=== PATIENT | female | born 1975 | race African-American/Black ===

== ENCOUNTER 2017-11-27 01:14 | Emergency (ER) | payer MEDICAID ==
[~2017-11-27] VITALS: Ht 165.1 cm; Wt 90.7 kg
[2017-11-27] VITALS (17 sets, daily range): BP systolic 101–129; BP diastolic 44–82
[2017-11-27] MEDS ORDERED: ONDANSETRON HCL 4 MG/2 ML VIAL ONE (03:26)
[2017-11-27] MEDS ORDERED: METHYLERGONOVINE MALEATE 0.2 MG/ML AMP IM ONE (03:45)
[2017-11-27] MEDS ORDERED: ONDANSETRON HCL 4 MG/2 ML VIAL IV ONE ×2 (04:00→10:00)
[2017-11-27 05:02] LABS: Basophils # (auto) 0.1 uL; Basophils % (auto) 0.4 % (0.0-2.0); Eosinophils # (auto) 0.1 uL; Eosinophils % (auto) 0.3 % (0.0-7.0); Hematocrit 30.5 % (36.0-46.0); Hemoglobin 10.3 g/dL (12.2-16.2); Lymphocytes # (auto) 1.5 uL; Lymphocytes % (auto) 9.4 % (10.0-50.0); Mean Corpuscular Hemoglobin 30.7 pg (28.0-32.0); Mean Corpuscular Hgb Conc. 33.9 g/dL (32.0-36.0); Mean Corpuscular Volume 90.7 fL (80.0-100.0); Monocytes # (auto) 0.5 uL; Monocytes % (auto) 3.1 % (0.0-12.0); Neutrophils # (auto) 13.5 uL; Neutrophils % (auto) 86.8 % (37.0-80.0); Platelet Count (auto) 208 10^3/uL (140-450); Red Blood Cells 3.36 10^6/uL (4.0-5.20); Red Cell Distribution Width 14.1 % (11.8-14.3); White Blood Cell 15.5 10^3/uL (4.4-10.8)
[2017-11-27 05:17] LABS: INR 0.97 (0.9-1.15); Partial Thromboplastin Time 23.3 sec (23.78-33.04); Prothrombin Time 10.4 sec (9.27-12.13)
[2017-11-27 05:20] LABS: Albumin 2.8 g/dL (3.4-5.0); BUN/Creatinine Ratio 17.7; Calcium 7.8 mg/dL (8.5-10.1)
[2017-11-27 05:27] LABS: Bilirubin, Total 0.2 mg/dL (0.2-1.0); Total Protein 6.2 g/dL (6.4-8.2)
[2017-11-27 08:04] LABS: Basophils # (auto) 0 uL; Basophils % (auto) 0.3 % (0.0-2.0); Eosinophils # (auto) 0 uL; Eosinophils % (auto) 0.1 % (0.0-7.0); Hematocrit 25.3 % (36.0-46.0); Hemoglobin 8.5 g/dL (12.2-16.2); Lymphocytes # (auto) 1.1 uL; Lymphocytes % (auto) 9.2 % (10.0-50.0); Mean Corpuscular Hemoglobin 30.4 pg (28.0-32.0); Mean Corpuscular Hgb Conc. 33.4 g/dL (32.0-36.0); Monocytes # (auto) 0.3 uL; Monocytes % (auto) 2.6 % (0.0-12.0); Neutrophils # (auto) 10.1 uL; Neutrophils % (auto) 87.8 % (37.0-80.0); Platelet Count (auto) 187 10^3/uL (140-450); Red Blood Cells 2.78 10^6/uL (4.0-5.20); Red Cell Distribution Width 14.3 % (11.8-14.3); White Blood Cell 11.5 10^3/uL (4.4-10.8)
[2017-11-27 10:20] LABS: Basophils # (auto) 0 uL; Basophils % (auto) 0.2 % (0.0-2.0); Eosinophils # (auto) 0 uL; Lymphocytes # (auto) 0.9 uL; Monocytes # (auto) 0.3 uL
[2017-11-27 10:21] LABS: Hematocrit 22.2 % (36.0-46.0); Hemoglobin 7.5 g/dL (12.2-16.2); Mean Corpuscular Hemoglobin 31.2 pg (28.0-32.0); Mean Corpuscular Volume 91.7 fL (80.0-100.0); Monocytes % (auto) 2.2 % (0.0-12.0); Neutrophils # (auto) 11.3 uL; Neutrophils % (auto) 90.6 % (37.0-80.0); Platelet Count (auto) 186 10^3/uL (140-450); Red Blood Cells 2.42 10^6/uL (4.0-5.20); White Blood Cell 12.5 10^3/uL (4.4-10.8)
[2017-11-27 10:32] LABS: Albumin 2.5 g/dL (3.4-5.0); Calcium 7.4 mg/dL (8.5-10.1); Potassium 4.4 mmol/L (3.5-5.1)
[2017-11-27 10:37] LABS: Bilirubin, Total 0.3 mg/dL (0.2-1.0); Total Protein 5.3 g/dL (6.4-8.2)
[2017-11-27 14:17] LABS: Basophils # (auto) 0 uL; Eosinophils # (auto) 0 uL; Lymphocytes # (auto) 1.2 uL; Lymphocytes % (auto) 8.2 % (10.0-50.0); Mean Corpuscular Hgb Conc. 33.4 g/dL (32.0-36.0); Mean Corpuscular Volume 91.1 fL (80.0-100.0); Monocytes # (auto) 0.3 uL; Neutrophils % (auto) 89.3 % (37.0-80.0); Red Blood Cells 2.21 10^6/uL (4.0-5.20); White Blood Cell 14.1 10^3/uL (4.4-10.8)
[2017-11-27 14:19] LABS: Basophils % (auto) 0.2 % (0.0-2.0); Hematocrit 20.2 % (36.0-46.0); Mean Corpuscular Hemoglobin 30.4 pg (28.0-32.0); Monocytes % (auto) 2.3 % (0.0-12.0); Neutrophils # (auto) 12.6 uL; Platelet Count (auto) 177 10^3/uL (140-450); Red Cell Distribution Width 14.3 % (11.8-14.3)
[2017-11-27 14:24] LABS: Hemoglobin 6.7 g/dL (12.2-16.2)
[2017-11-27 14:30] LABS: Calcium 6.8 mg/dL (8.5-10.1); Potassium 3.9 mmol/L (3.5-5.1)
[2017-11-27 14:56] LABS: Urine Bacteria NONE SEEN /hpf (None Seen); Urine Blood Negative /uL (Negative); Urine Mucus FEW (None Seen); Urine Specific Gravity 1.023 (1.001-1.035); Urine WBC 1 /hpf (0 - 5)
[2017-11-27] MEDS ORDERED: ACETAMINOPHEN 325 MG TAB PO ONE (15:15)
[2017-11-27 22:38] LABS: Basophils # (auto) 0 uL; Basophils % (auto) 0.1 % (0.0-2.0); Eosinophils # (auto) 0 uL; Hematocrit 25.6 % (36.0-46.0); Hemoglobin 8.7 g/dL (12.2-16.2); Lymphocytes # (auto) 1.9 uL; Mean Corpuscular Hemoglobin 30.3 pg (28.0-32.0); Mean Corpuscular Volume 89.3 fL (80.0-100.0); Monocytes # (auto) 0.9 uL; Monocytes % (auto) 5.7 % (0.0-12.0); Neutrophils # (auto) 13.2 uL; Neutrophils % (auto) 82.2 % (37.0-80.0); Platelet Count (auto) 171 10^3/uL (140-450); Red Blood Cells 2.87 10^6/uL (4.0-5.20)
[2017-11-27 22:52] LABS: INR 1.02 (0.9-1.15); Partial Thromboplastin Time 23.3 sec (23.78-33.04); Prothrombin Time 10.9 sec (9.27-12.13)
[2017-11-27] MEDS ORDERED: OXYTOCIN 10UNIT/ML 1ML VIAL IV ONE ×2 (23:00→23:30)
[2017-11-28] MEDS ORDERED: FUROSEMIDE 20 MG/2 ML VIAL IV ONE
[2017-11-28 06:10] VITALS: BP 100/35
== END 2017-11-28 13:22 | disposition home or self-care (01) ==
LOC: ER 01:14
DX: O03.80 Unspecified complication following complete or unspecified spontaneous abortion (principal); O26.891 Other specified pregnancy related conditions, first trimester; Z3A.15 15 weeks gestation of pregnancy; Z88.1 Allergy status to other antibiotic agents
CPT/HCPCS: 36415; 36430; 76801; 76805; 80048; 80053; 81001; 84702; 85025; 85610; 85730; 86850; 86900; 86901; 86920; 96372; 96374; 96375; 96376; 99285; J1940; J2210; J2405; J2590; J7030; J7040; P9016

== ENCOUNTER 2018-08-14 21:49 | Emergency (ER) | payer MEDICAID ==
[~2018-08-14] VITALS: Ht 167.6 cm; Wt 88.5 kg
[2018-08-14 23:04] LABS: Basophils # (auto) 0.1 uL; Basophils % (auto) 0.5 % (0.0-2.0); Eosinophils # (auto) 0 uL; Eosinophils % (auto) 0.4 % (0.0-7.0); Hematocrit 42.2 % (36.0-46.0); Hemoglobin 14.2 g/dL (12.2-16.2); Lymphocytes # (auto) 0.5 uL; Mean Corpuscular Hemoglobin 30.7 pg (28.0-32.0); Mean Corpuscular Hgb Conc. 33.7 g/dL (32.0-36.0); Mean Corpuscular Volume 91.1 fL (80.0-100.0); Monocytes # (auto) 0.2 uL; Neutrophils % (auto) 92.1 % (37.0-80.0); Platelet Count (auto) 262 10^3/uL (140-450); Red Blood Cells 4.64 10^6/uL (4.0-5.20); White Blood Cell 10.9 10^3/uL (4.4-10.8)
[2018-08-14 23:23] LABS: Albumin 3.8 g/dL (3.4-5.0); Calcium 8.7 mg/dL (8.5-10.1); Potassium 3.9 mmol/L (3.5-5.1)
[2018-08-14 23:25] LABS: BUN/Creatinine Ratio 19.5
[2018-08-14 23:27] LABS: Bilirubin, Total 0.6 mg/dL (0.2-1.0); Total Protein 8.2 g/dL (6.4-8.2)
[2018-08-15 02:32] LABS: Urine Bacteria MOD /hpf (None Seen); Urine Blood 3+ /uL (Negative); Urine Mucus FEW (None Seen); Urine Specific Gravity 1.021 (1.001-1.035); Urine WBC 289 /hpf (0 - 5)
[2018-08-15] MEDS ORDERED: SODIUM CHLORIDE 0.9% 1,000 ML IVB ONE (05:04)
[2018-08-15] MEDS ORDERED: cefTRIAXone 1GM/50ML D5W 50 ML IV ONE (05:15)
[2018-08-15] MEDS ORDERED: ONDANSETRON HCL 4 MG/2 ML VIAL IV ONE (05:15)
[2018-08-15] MEDS ORDERED: DIPHENOXYLATE W/ATROPINE 2.5 MG TAB PO ONE (05:15)
[2018-08-15] MEDS ORDERED: ACETAMINOPHEN/CODEINE#3 (300/30mg) TAB PO ONE (05:30)
[2018-08-15 06:11] LABS: INR 0.95 (0.9-1.15); Partial Thromboplastin Time 25.5 sec (23.64-32.05); Prothrombin Time 10.3 sec (9.06-12.60)
[2018-08-15 06:24] VITALS: BP 134/82
== END 2018-08-15 07:26 | disposition home or self-care (01) ==
LOC: ER 21:52
DX: E86.0 Dehydration (principal); N39.0 Urinary tract infection, site not specified; Z88.0 Allergy status to penicillin
CPT/HCPCS: 36415; 80053; 81001; 82150; 83690; 83735; 85025; 85610; 85730; 93005; 96365; 96375; 99284; J0696; J2405; J7030

== ENCOUNTER 2018-08-20 20:22 | Emergency (ER) | payer MEDICAID ==
[~2018-08-20] VITALS: Ht 170.2 cm; Wt 72.6 kg
[2018-08-20 21:58] LABS: Urine WBC None Seen /hpf (0 - 5)
[2018-08-20 22:30] LABS: Basophils # (auto) 0.1 uL; Basophils % (auto) 0.8 % (0.0-2.0); Eosinophils # (auto) 0.2 uL; Eosinophils % (auto) 2.6 % (0.0-7.0); Hematocrit 39.2 % (36.0-46.0); Hemoglobin 13.6 g/dL (12.2-16.2); Lymphocytes # (auto) 1.8 uL; Lymphocytes % (auto) 20.8 % (10.0-50.0); Mean Corpuscular Hgb Conc. 34.6 g/dL (32.0-36.0); Mean Corpuscular Volume 89.6 fL (80.0-100.0); Monocytes # (auto) 0.5 uL; Monocytes % (auto) 5.4 % (0.0-12.0); Neutrophils # (auto) 6.1 uL; Neutrophils % (auto) 70.4 % (37.0-80.0); Nucleated Red Blood Cells % 0.1 %; Platelet Count (auto) 271 10^3/uL (140-450); Red Blood Cells 4.38 10^6/uL (4.0-5.20); Red Cell Distribution Width 12.7 % (11.8-14.3); White Blood Cell 8.6 10^3/uL (4.4-10.8)
[2018-08-20 22:33] LABS: Albumin 3.8 g/dL (3.4-5.0); Blood Urea Nitrogen 10 mg/dL (7-18); Calcium 8.8 mg/dL (8.5-10.1); Chloride 108 mmol/L (98-107); Glucose 92 mg/dL (74-106); Potassium 3.7 mmol/L (3.5-5.1); Sodium 141 mmol/L (136-145)
[2018-08-20 22:43] LABS: Alanine Aminotransferase 28 U/L (13-56); Alkaline Phosphatase 52 U/L (45-117); Anion Gap 7 (5-15); Aspartate Aminotransferase 14 U/L (15-37); BUN/Creatinine Ratio 15.6; Bilirubin, Total 0.2 mg/dL (0.2-1.0); Carbon Dioxide 26 mmol/L (21-32); GFR African American 130 mL/min; GFR Non-African American 107 mL/min; Total Protein 7.8 g/dL (6.4-8.2)
[2018-08-20 22:54] LABS: Urine Bacteria NONE SEEN /hpf (None Seen); Urine Blood Negative /uL (Negative); Urine Specific Gravity 1.002 (1.001-1.035)
[2018-08-21 04:00] VITALS: BP 125/87
[2018-08-21] MEDS ORDERED: LEVOFLOXACIN 500 MG TAB PO ONE (04:15)
== END 2018-08-21 04:54 | disposition home or self-care (01) ==
LOC: EDBD 20:22 → ER 20:23
DX: J20.9 Acute bronchitis, unspecified (principal); R00.2 Palpitations; R07.9 Chest pain, unspecified
CPT/HCPCS: 36415; 71045; 80053; 81001; 83880; 84443; 84484; 84702; 85025; 85379; 93005; 94761